=== PATIENT | female | born 1955 | race Caucasian/White ===

== ENCOUNTER → 2016-08-13 | Outpatient (CLI) | payer BC ==
[~2016-08-13] MED LIST: ASPCH81X PO; COEN1CAP7 PO; DVN/160 PO; METO25TA3 PO; MULT1CHW4 PO; OMEG12006 PO
[2016-08-13 14:00] LABS: ALT/SGPT 46 U/L (12-78); BLOOD UREA NITROGEN 17 mg/dl (7-18); BUN/CREATININE RATIO 22.8 (10-20); CALCIUM 8.6 mg/dl (8.5-10.1); CARBON DIOXIDE 25 mmol/L (21-32); CHLORIDE 108 mmol/L (98-107); CHOLESTEROL 200 mg/dl (0-200); CHOLESTEROL/HDL RATIO 2.5; CREATININE 0.76 mg/dl (0.60-1.20); GLUCOSE 93 mg/dl (70-99); HDL CHOLESTEROL 81 mg/dl; LDL CHOLESTEROL CALCULATED 103 mg/dl; POTASSIUM 4.2 mmol/L (3.5-5.1); SODIUM 142 mmol/L (136-145); TRIGLYCERIDES 78 mg/dl (0-150); VERY LOW DENSITY LIPOPROT CALC 16 mg/dl
[2016-08-13 14:11] LABS: ALB/GLOB RATIO 1.2 (0.9-2); ALKALINE PHOSPHATASE 75 U/L (45-117); AST/SGOT 21 U/L (15-37); THYROID STIMULATING HORMONE 0.885 uIu/ml (0.300-4.500)
--- NOTE | 2016-08-18 07:05 | CODING QUERY MEDICAL NECESSITY ---
SUPPORTING DIAGNOSIS NEEDED Dr. Gordon, A supporting diagnosis is required for the test/procedure performed on this patient in order for us to be reimbursed by the patient's insurance. Please provide a supporting diagnosis for the following test/procedure listed below next to the test name along with your signature. *If there is no additional diagnosis for this patient that would support the following test/procedure please document that below next to the test/procedure. Test(s)/Procedure(s) that require a supporting diagnosis: * ([id number]) VITAMIN D ASSAY DIAGNOSIS: DATE OF SERVICE: 08/13/16 Provider Signature: Date: Thank you Catracho Ballesteros [facility] Information Management Once completed, please kindly fax back to [phone] For questions please call [phone]
== END | disposition home or self-care (01) ==
LOC: C.LABPVFM 08:31
PROVIDERS: ATTEND Family Medicine
DX: I10 Essential (primary) hypertension (principal); Z13.220 Encounter for screening for lipoid disorders; Z13.21 Encounter for screening for nutritional disorder; Z13.29 Encounter for screening for other suspected endocrine disorder; E55.9 Vitamin D deficiency, unspecified

== ENCOUNTER → 2017-06-16 | Outpatient (CLI) | payer OTHER ==
--- NOTE | 2017-06-16 11:14 | DIAGNOSTIC IMAGING REPORT ---
L KNEE 4 OR MORE VIEWS CLINICAL HISTORY: Left knee pain COMPARISON: None. DISCUSSION: No acute fractures are visualized. There is marked narrowing medial joint compartment. There are medial joint compartment spurs. IMPRESSION: Moderately advanced osteoarthritic changes involving the medial joint compartment. No acute fractures. Electronically signed by: Marcelo Cano M.D. 06/16/2017 11:13 AM Dictated Date/Time: 06/16/2017 11:12 AM
== END | disposition home or self-care (01) ==
LOC: C.RADPV 10:10
PROVIDERS: ATTEND Family Medicine
DX: M25.569 Pain in unspecified knee (principal)

== ENCOUNTER → 2017-08-27 | Outpatient (CLI) | payer OTHER | END | disposition home or self-care (01) | LOC: C.PAPS 13:39 | PROVIDERS: ATTEND Family Medicine | DX: Z12.4 Encounter for screening for malignant neoplasm of cervix (principal) ==

== ENCOUNTER 2019-05-16 10:09 | Inpatient (IN) ==
--- NOTE | 2019-04-26 09:46 | PAT Medication Instructions ---
Medication Instructions Date of Service April 26, 2019 Home Medications coenzyme Q10 100 mg capsule 100 mg PO QAM losartan 50 mg tablet 50 mg PO PM omega-3 acid ethyl esters 1 gram capsule 1 cap PO BID metoprolol succinate 25 mg PO QPM Chewable Heartburn Med, Otc 1 dose PO UD PRN cholecalciferol (vitamin D3) [Vitamin D3] 1,000 unit PO DAILY multivitamin 1 cap PO DAILY turmeric 400 mg PO DAILY vitamin B complex 1 cap PO DAILY STOP taking 2 weeks before surgery (or as soon as possible if surgery is within 2 weeks) coenzyme Q10 100 mg capsule 100 mg PO QAM omega-3 acid ethyl esters 1 gram capsule 1 cap PO BID turmeric 400 mg PO DAILY DO NOT take the morning of surgery Chewable Heartburn Med, Otc 1 dose PO UD PRN cholecalciferol (vitamin D3) [Vitamin D3] 1,000 unit PO DAILY multivitamin 1 cap PO DAILY vitamin B complex 1 cap PO DAILY Take evening before surgery losartan 50 mg tablet 50 mg PO PM metoprolol succinate 25 mg PO QPM Chewable Heartburn Med, Otc 1 dose PO UD PRN (if needed) Other Notes If you have any questions please call us at [phone] or [phone] or [phone] or [phone]
--- NOTE | 2019-05-01 08:32 | Anesthesiology Consultation ---
Date of Service May 01, 2019 Assessment & Plan (1) Encounter for pre-operative examination: Chart Review Chart Review: Acceptable Risk for Surgery and Patient seen in Pre Admission Testing Teaching & Discussion Pre-Anesthesia Teaching/Discussion Notes: Instructed NPO after midnight before surgery,except medications with 15 cc of water. Medication instructions provided according to the PAT guidelines. History Surgery Operation Date: 05/16/19 07:00 Proposed Procedures p Left Total Knee Replacement - Logan Zepeda MD Height/Weight Height: 4 ft 11 in Weight: 78.7 kg Allergies Allergy/AdvReac Type Severity Reaction Status Date / Time Penicillins Allergy Unknown RASH Verified 04/20/19 11:00 petrolatum,white Allergy Unknown ITCHINESS Verified 04/20/19 11:00 [From Vaseline] Medications Home Medications Medication Instructions Recorded Confirmed Last Taken coenzyme Q10 100 mg capsule 100 mg PO QAM cap 02/13/19 04/20/19 03/27/19 losartan 50 mg tablet 50 mg PO PM #90 tab 02/13/19 04/20/19 03/27/19 omega-3 acid ethyl esters 1 gram 1 cap PO BID cap 02/13/19 04/20/19 03/27/19 capsule metoprolol succinate 25 mg PO QPM 03/10/19 04/20/19 03/27/19 Chewable Heartburn Med, Otc 1 dose PO UD PRN 04/20/19 04/20/19 Unknown cholecalciferol (vitamin D3) 1,000 unit PO DAILY 04/20/19 04/20/19 Unknown [Vitamin D3] multivitamin 1 cap PO DAILY 04/20/19 04/20/19 Unknown turmeric 400 mg PO DAILY 04/20/19 04/20/19 Unknown vitamin B complex 1 cap PO DAILY 04/20/19 04/20/19 Unknown Past Medical History Medical History Benign hypertension Bilateral primary osteoarthritis of knee Heartburn controlled History of skin cancer s/p excision Obesity Exercise / Class Metabolic Activity III < 4 Walking/Shop/Light housework Past Family History Family History Grandmother (Maternal) Colon cancer Father Lung cancer Past Surgical History Surgical History History of bilateral tubal ligation History of cataract surgery R History of colonoscopy History of tooth extraction Past Anesthesia History No Hx of Anesthesia Complications (except PONV x 1 episode) and No Family Hx of Anesthesia Complications History of PONV No Hx of Motion Sickness and History of PONV (x1 episode) Social History Smoking Status: Former smoker Do You Dip or Chew Tobacco: No Smoking End Date: 1975 Hx Alcohol Use: Yes Alcohol type: beer, wine and hard liquor alcohol intake frequency: a few times a week Hx Substance Use: No substance use type: does not use Review of Systems Controlled reflux. Hx palpitations controlled on beta maria de jesus. Patient denies chest pain, shortness of breath, cough, wheezing, palpitations. Physical Exam Vital Signs VITALS BP 125/85 P 76 TEMP 98.7 SP02 96%RA RESP 16 PHYSICAL Full neck and c-spine range of motion. Full TMJ range of motion. TMD 3.5 finger breaths Mallampati Score 2 Dentition: missing molar Lungs: clear throughout to auscultation Cardiac: regular rate and rhythm, no murmurs noted Spine: normal Carotid arteries: negative bruit Extremities: no edema Testing Laboratory Results 05/01/19 08:36 05/01/19 08:36 PT 9.8 Seconds (9.0-12.0) 05/01/19 08:36 INR 1.0 (0.9-1.1) 05/01/19 08:36 APTT 23.6 Seconds (21.0-31.0) 05/01/19 08:36 Blood Type B Positive 05/01/19 08:36 Antibody Screen NEGATIVE 05/01/19 08:36 Electrocardiogram Date: 05/01/19 NSR at 78bpm. Minimal voltage criteria for LVH, may be normal variant. Chest X-Ray Date: 05/01/19 Degenerative change and mild scoliosis are noted in the thoracic spine. No active disease in the chest.
--- NOTE | 2019-05-01 09:38 | XRay Report ---
TWO VIEW CHEST CLINICAL HISTORY: Preoperative examination. FINDINGS: PA and lateral chest radiographs are compared to study dated 04/21/2014. The cardiomediasti nal silhouette is unremarkable. The lungs and pleural spaces are clear. There is no pneumothorax. Th e skeletal structures are osteopenic. The bony thorax appears intact. Degenerative change and mild sc oliosis are noted in the thoracic spine. IMPRESSION: No active disease in the chest. Electronically signed by: Chema Lugo M.D. 05/01/2019 9:36 AM
[2019-05-01 10:59] LABS: Basophils # (auto) 0.01 K/uL (0-0.2); Basophils % (auto) 0.1 %; Eosinophils # (auto) 0.09 K/uL (0-0.5); Eosinophils % (auto) 1.2 %; Hematocrit (blood only) 45.6 % (37-47); Immature Granulocytes # (auto) 0.02 K/uL (0.00-0.02); Immature Granulocytes % (auto) 0.3 %; Lymphocytes # (auto) 1.69 K/uL (1.2-3.4); Lymphocytes % (auto) 23.1 %; Mean Corpuscular Hemoglobin 29.8 pg (25-34); Mean Corpuscular Hgb Conc 32.9 g/dL (32-36); Mean Corpuscular Volume 90.5 fL (80-100); Mean Platelet Volume 11.7 fL (7.4-10.4); Monocytes % (auto) 6.8 %; Neutrophils % (auto) 68.5 %; Platelet Count 248 K/uL (130-400); RDW Coefficient of Variation 13.2 % (11.5-14.5); Red Blood Count 5.04 M/uL (4.2-5.4); White Blood Count 7.31 K/uL (4.8-10.8)
[2019-05-01 11:08] LABS: BUN Creatinine Ratio 22.6 (10-20); Calcium 9.8 mg/dl (8.5-10.1); Creatinine Clr Calc Pharmacy 63.6 ml/min; Est GFR (Non-African American) 76.8; Potassium 4.3 mmol/L (3.5-5.1)
[2019-05-01 11:13] LABS: Partial Thromboplastin Ratio 0.9; Partial Thromboplastin Time 23.6 Seconds (21.0-31.0); Prothrombin Time 9.8 Seconds (9.0-12.0)
[~2019-05-16 10:09] MED LIST changes: +ACETAMINOPHEN 500 MG TAB PO SCH; -ASPCH81X PO; +BUPIVACAINE 0.25% 30 ML VIAL ONE; +BUPIVACAINE 0.5 % 5 MG/1 ML PF 10ML VIAL ONE; +BUPIVACAINE LIPOSOME/PF 266 MG, BUPIVACAINE/EPINEPHRINE 50 ML, SODIUM CHLORIDE 0.9% 30 ... INFIL SCH; +CEFAZOLIN 2000MG 2,000 MG/15 ML SYR IV SCH; -COEN1CAP7 PO; -DVN/160 PO; +FAMOTIDINE 20 MG TAB PO SCH; +GABAPENTIN 300 MG CAP PO SCH; +LR 500ML BOLUS, THEN 15ML/HR IV SCH; +LR 60ML/HR IV SCH; -METO25TA3 PO; +METOCLOPRAMIDE HCL 10 MG TABLET PO SCH; -MULT1CHW4 PO; -OMEG12006 PO; +SCOPOLAMINE 1.5 MG TDSY TD SCH; +TRANEXAMIC ACID 1,000 MG **IV Intra-op IV SCH
[2019-05-16] MEDS ORDERED: TRANEXAMIC ACID / 0.7% NACL 1000MG/100ML BAG IV ONE (10:40)
--- NOTE | 2019-05-16 11:01 | History & Physical Bridge Note ---
Date of Service May 16, 2019 History & Physical Bridge Note I have examined the patient, reviewed the History & Physical and in the interval since the performance of the History & Physical I have noted the following changes of clinical significance: no changes noted
--- NOTE | 2019-05-16 11:24 | History & Physical Report ---
Date of Service May 16, 2019 Assessment & Plan (1) Osteoarthritis: (2) Degenerative joint disease of knee: Left Total Knee Replacement History of Present Illness Chief Complaint: Left Knee Pain Primary Care Provider: Ana Gordon MD 63 year old female with several year history of Bilateral knee pain...left greater than right. Failed all conservative care and desires to proceed with left knee replacement. Allergies Allergy/AdvReac Type Severity Reaction Status Date / Time Penicillins Allergy Unknown RASH Verified 05/16/19 10:34 petrolatum,white Allergy Unknown ITCHINESS Verified 05/16/19 10:34 [From Vaseline] Home Medications Home Medications Medication Instructions Recorded Confirmed Type coenzyme Q10 100 mg capsule 100 mg PO QAM cap 02/13/19 05/16/19 History losartan 50 mg tablet 50 mg PO PM #90 tab 02/13/19 05/16/19 History omega-3 acid ethyl esters 1 gram 1 cap PO BID cap 02/13/19 05/16/19 History capsule metoprolol succinate 25 mg PO QPM 03/10/19 05/16/19 History Chewable Heartburn Med, Otc 1 dose PO UD PRN 04/20/19 05/16/19 History cholecalciferol (vitamin D3) 1,000 unit PO DAILY 04/20/19 05/16/19 History [Vitamin D3] multivitamin 1 cap PO DAILY 04/20/19 05/16/19 History turmeric 400 mg PO DAILY 04/20/19 05/16/19 History vitamin B complex 1 cap PO DAILY 04/20/19 05/16/19 History Past Med/Surg History Medical History (Updated 05/16/19 @ 11:24 by Logan Zepeda MD) Benign hypertension Bilateral primary osteoarthritis of knee Degenerative joint disease of knee Heartburn controlled History of skin cancer s/p excision Obesity Surgical History History of bilateral tubal ligation History of cataract surgery R History of colonoscopy History of tooth extraction Family History Grandmother (Maternal) Colon cancer Father Lung cancer Social History Preferred Language: Vietnamese Communication Ability: Effective 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 Beliefs That Will Affect Care: None Current Living Situation: Spouse Other Information That Helps Us Care for You: No Feels Safe at Home: Yes Smoking Status: Former smoker Do You Dip or Chew Tobacco: No ; Smoking End Date: Quit 1975 ; Second Hand Exposure: No ; Hx Alcohol Use: Yes Alcohol type: beer, wine and hard liquor Hx Substance Use: No Physical Exam Constitutional: WD/WN, vitals as above Eyes: PERRL, conjunctivae normal, anicteric sclerae ENMT: external ear and nose normal, oropharynx normal Neck: trachea midline, no thyromegaly Respiratory: normal respiratory effort, lungs clear to auscultation Cardiovascular: RRR, no murmur, no edema Chest (Breasts): normal inspection/palpation of breasts Gastrointestinal (Abdomen): normal bowel sounds, soft, nontender, no hepatosplenomegaly Musculoskeletal: Left Knee varus deformity. Tender medial joint line. ROM: 10-105 degrees. N/V intact. Skin: no rashes, warm and dry Neurologic: patellar DTR's 2+ bilat, sensation intact Results & Data Vital Signs (Past 12 Hours) Vital Signs Temp Pulse Resp BP Pulse Ox 05/16/19 10:37 36.7 C 75 20 140/88 97
[2019-05-16] MEDS ORDERED: fentaNYL citrate 100 MCG/2 ML VIAL IV PRN (11:26)
[2019-05-16] MEDS ORDERED: ONDANSETRON INJ 2 MG/ML 2 ML VIAL IV PRN ×2 (11:26→15:54)
[2019-05-16] MEDS ORDERED: ePHEDrine sulfate 50 MG/ML AMP IV PRN (11:26)
[2019-05-16] MEDS ORDERED: ATROPINE SULFATE 0.1 MG/ML 10ML SYR IV PRN (11:26)
[2019-05-16] MEDS ORDERED: PROPOFOL IV EMULSION 10 MG/ML 20 ML VIAL IV ONE (11:28)
[2019-05-16] MEDS ORDERED: LIDOCAINE HCL 2% 2 ML VIAL/AMP(20MG/ML) INFIL ONE (11:28)
[2019-05-16] MEDS ORDERED: fentaNYL citrate 100 MCG/2 ML VIAL ONE (11:28)
[2019-05-16] MEDS ORDERED: MIDAZOLAM HCL 1 MG/ML 2ML VIAL ONE (11:28)
[2019-05-16] MEDS ORDERED: BUPIVACAINE LIPOSOME 1.3% 266 MG/20 ML VIAL ONE (12:42)
[2019-05-16] MEDS ORDERED: BUPIVACAINE 0.25% 30 ML VIAL ONE (12:42)
[2019-05-16] MEDS ORDERED: SODIUM CHLORIDE 0.9% PF 50 ML VIAL ONE (12:42)
[2019-05-16] MEDS ORDERED: BACITRACIN INJ 50,000 UNIT VIAL ONE (12:42)
[2019-05-16] MEDS ORDERED: EPINEPHrine INJ 1 MG/ML AMP ONE (12:43)
[2019-05-16] MEDS ORDERED: PHENYLEPHRINE 100MCG/ML 5ML SYR ONE (13:29)
[2019-05-16] MEDS ORDERED: ONDANSETRON INJ 2 MG/ML 2 ML VIAL ONE (14:10)
--- NOTE | 2019-05-16 14:50 | Post Operative Brief Note ---
PG Immediate Post Op with CF Date of Surgery May 16, 2019 Pre & Post Diagnosis Operation Date: 05/16/19 12:30 Pre-Op Diagnosis: Left Knee Advanced Degenerative Joint Disease Post-Op Diagnosis: Left Knee Advanced Degenerative Joint Disease I identified the patient and participated in the time-out.: Yes Procedure Operation Date: 05/16/19 12:30 Actual Procedures p Left Total Knee Replacement(Left) - Logan Zepeda MD Surgeon Logan Zepeda MD Band Aid Machine Operator Toyin, PAC Estimated Blood Loss 50 Findings Consistent with Post-Op Diagnosis Fluids 1100 cc Specimens Specimen Description: A. Left Knee Bone and Tissue Drains Bedoya Catheter (A 16 Tamazight bedoya catheter was inserted by Elisa Murillo RN, without difficulty, clear yellow urine obtained, output to be monitored by Anesthesia.) Anesthesia Type Spinal MAC Complications none Disposition Accompanied Patient To Recovery: No Disposition: Recovery Room
--- NOTE | 2019-05-16 15:42 | XRay Report ---
TWO VIEWS LEFT KNEE CLINICAL HISTORY: Postoperative examination. FINDINGS: AP and crosstable lateral portable views of the left knee are obtained. A left knee arthrop lasty is in near anatomic alignment. There has been undersurface remodeling of the patella. No acute fracture is seen. There are expected postoperative changes around the knee including skin clips, soft tissue edema, and subcutaneous gas. IMPRESSION: Expected postoperative changes status post left knee arthroplasty. No acute fracture is s een. Electronically signed by: Chema Lugo M.D. 05/16/2019 3:40 PM
--- NOTE | 2019-05-16 15:43 | Anesthesiology Progress Note ---
Date of Service May 16, 2019 Anesthesia Post Procedure Vital Signs Vital Signs: Temp Pulse Pulse Resp BP Pulse Ox 05/16/19 15:40 36.6 C 58 L 16 115/70 100 05/16/19 15:30 36.6 C 58 L 16 100/64 100 05/16/19 15:20 68 16 113/61 100 05/16/19 15:10 58 L 16 109/55 L 100 05/16/19 15:00 62 16 104/53 L 100 05/16/19 14:54 36.4 C L 68 16 117/52 L 100 05/16/19 10:37 36.7 C 75 20 140/88 97 Transfer of Care Handoff Completed per policy Notes Mental Status: alert / awake / arousable and participated in evaluation Nausea / Vomiting: adequately controlled Pain: adequately controlled Airway Patency, RR, SpO2: stable & adequate BP & HR: stable & adequate Hydration State: stable & adequate Neuraxial Anesthesia: was administered and sensory block is resolving Anesthetic Complications: no major complications apparent and Pt Satisfied with anesthetic care
[2019-05-16] MEDS ORDERED: NALOXONE HCL 0.4 MG/1 ML VIAL/CARP IV PRN (15:54)
[2019-05-16] MEDS ORDERED: ALUMINUM/MAGNESIUM SUSP 30 ML UDC PO PRN (15:54)
[2019-05-16] MEDS ORDERED: OXYCODONE HCL IR 5 MG TAB (IMMEDIATE RELEASE) PO PRN (15:54)
[2019-05-16] MEDS ORDERED: bisacodyL 10 MG SUPP PR PRN (15:54)
[2019-05-16] MEDS ORDERED: HYDROmorphone INJ 0.5 MG/0.5 ML SYR IV PRN (15:54)
[2019-05-16] MEDS ORDERED: CALCIUM CARBONATE 500 MG CHEWABLE TAB PO PRN (15:54)
[2019-05-16] MEDS ORDERED: SODIUM CHLORIDE 0.9% 1000ML 1,000 ML IV SCH (15:54)
[2019-05-16] MEDS ORDERED: MAGNESIUM HYDROXIDE SUSP 30 ML UDC PO PRN (15:54)
[2019-05-16] MEDS ORDERED: METOCLOPRAMIDE HCL INJ 5 MG/ML 2 ML VIAL IV PRN (15:54)
[2019-05-16] MEDS: KETOROLAC 30 MG/ML VIAL IV SCH ×2 (17:02→21:59)
[2019-05-16] MEDS: FERROUS GLUCONATE 324 MG TAB PO SCH (17:02)
[2019-05-16] MEDS: ASCORBIC ACID 500 MG TAB PO SCH (17:02)
[2019-05-16] MEDS: ACETAMINOPHEN 500 MG TAB PO SCH ×2 (17:02→23:46)
[2019-05-16] MEDS: CHECK SCOPOLAMINE PATCH PLACEMENT SCH ×2 (17:03→23:46)
[2019-05-16] MEDS ORDERED: TRANEXAMIC ACID / 0.7% NACL 1,000 MG/100 ML BAG IV SCH (20:30)
[2019-05-16] MEDS: DOCUSATE SODIUM 100 MG CAP PO SCH (20:46)
[2019-05-16] MEDS: LOSARTAN POTASSIUM 50 MG TAB PO SCH (20:46)
[2019-05-16] MEDS: CEFAZOLIN 1000MG 1,000 MG/7.5 ML SYR IV SCH (20:46)
[2019-05-16] MEDS: ASPIRIN 81 MG ECTAB PO SCH (20:46)
[2019-05-16] MEDS: TAPENTADOL HCL ER 50 MG TABCR PO SCH (20:46)
[2019-05-16] MEDS: METOPROLOL SUCC 25MG EXT REL TAB PO SCH (20:46)
[2019-05-16] MEDS: SENNA 8.6 MG TAB PO SCH (20:47)
[2019-05-16] MEDS: OMEGA-3 (PURIFIED FISH OIL) 1 GM CAP PO SCH (20:47)
--- NOTE | 2019-05-16 22:18 | Operative Report ---
Post Operative Report Pre & Post Diagnosis Operation Date: 05/16/19 12:30 Pre-Op Diagnosis: Left Knee Advanced Degenerative Joint Disease Post-Op Diagnosis: Left Knee Advanced Degenerative Joint Disease I identified the patient and participated in the time-out.: Yes Procedure Operation Date: 05/16/19 12:30 Actual Procedures p Left Total Knee Replacement(Left) - Logan Zepeda MD Surgeon Logan Zepeda MD Spray Technician Toyin, PAC Estimated Blood Loss 50 Findings Consistent with Post-Op Diagnosis Operative findings revealed advanced left knee DJD. She had extensive grade 4 [id number] disease of the medial femoral condyle medial tibial plateau with extensive eburnation and more diffuse less severe patellofemoral disease. She had a varus deformity to her knee. A large knee joint effusion. She had osteophytes off the medial femoral condyle medial tibial plateau. Fluids 1100 cc Specimens Left knee sent for pathology. Drains None. Anesthesia Type Spinal MAC Complications none Disposition Accompanied Patient To Recovery: No Disposition: Recovery Room Indications Patient is a 63-year-old female with a long history of bilateral knee pain discomfort left side greater than the right. She been through extensive conservative treatment which just became less successful over time. X-rays show advanced DJD. She elected proceed with left total knee arthroplasty. Description of Procedure Operative implants consisted of: 1. Biomet Vanguard size 60 left posterior stabilized femoral component. 2. Biomet size 63 tibial tray. 3. 10 mm posterior bite polyethylene insert. 4. 28 x 8 all poly-patella. Patient was taken to the operating identified and placed in the operating table supine position protectors were properly padded. IV antibiotics were provided by the anesthesia team. A spinal anesthetic and abductor canal block had provided holding area. Luong catheter was placed in sterile fashion. A left eye turn was then placed in the left lower extremities and prepped and draped in usual sterile fashion. The left leg was elevated and exsanguinated with use of an Esmarch interspace at 300 mmHg. An anterior posterior left knee was then performed to longitudinal incision centered over the patella. Sharp dissection was gone through subcutaneous tissue down to level the extensor mechanism. A medial parapatellar arthrotomy incision was made. Some subperiosteal dissection was carried out medially. The fat pad was resected from each patella tendon. Lateral patellofemoral ligament was released. The patella was subluxated laterally and the knee was flexed. The osteophytes were taken off the distal femur. The ACL PCL were then released from the distal femur the tibia subluxated anteriorly. The external tibial alignment jig was then placed in the interface the tibia adjusted 14 mm medially. Proximal tibial cut was made to remove about 1 to 2 mm of bone from most efficient aspect medial tibial plateau. Some osteophytes were taken off medial and posterior medially. The tibia was then sized to a size 63. Attention drawn the femur. The distal femur was entered with a sharp drop with intramedullary canal was suction. A left 5 degree valgus cutting guide was placed. Distal femoral cu tting block was pinned in place but distal femoral cut was made to take an additional 3 mm of bone off distal femur. The femur was then sized to a size 60. The AP cutting block was pinned parallel to the epicondylar axis which was 4 degrees of external rotation. The anterior cut, anterior chamfer, posterior cut, posterior chamfer cuts were made. Box cutting guide was placed in just slight lateral and the box cut was made. The knee was flexed. The remnants of the medial lateral menisci were excised. The osteophytes were taken off the posterior aspect of the femur. Trial femoral component was placed. The tibial tray was pinned in maximum external rotation drill and stem punch we used to create defect in the proximal tibia for the tibial tray. The knee was then trialed and the 10 mm insert fit most appropriately. Attention drawn the patella. The patella was cleaned of all soft tissues. Patella thickness measured about 18 mm in thickness was cut down to 12. Size a size 28 patella. Locals were drilled for the 28 patella. The lateral osteophytes removed. Patella button was placed. Knee was taken through range of motion patella tracked nicely with no thumbs test. Attention turned to placing the permanent components. All trial components were removed. A bone plug was placed in the disc femur limit blood loss put a double batch Palacos G cement was mixed. [employer] size 60 left posterior bifemoral component, size 63 tibial tray, 10 mm posterior bite polyethylene insert, 28 x 8 all poly-patella then cement in place. Knees brought in full extension total cement hardened. Final cement check was then performed. The pericapsular tissues were injected with total 100 cc of combination of 20 cc of Exparel, 30 cc normal saline, 50 cc of quarter percent Marcaine with epinephrine. Patient did receive 1 g of tranexamic acid. The tourniquet was then let down for final tourniquet time of 50 minutes. Hemostasis was assured use electrocautery. The wounds once again irrigated. Extensor mechanism closed with combination 1 PDS suture #1 Vicryl suture in [id number] fashion. Extensor mechanism checked found to be intact with subcutaneous tissue then closed with 2 Dexon suture buried knot fashion skin was closed skin mary. Leg was then cleaned dried a sterile dressing composed of Xeroform, 4 x 4's, sterile cast padding, Matt bandage were applied. Patient then transferred to the recovery room in stable condition. Patient tolerated the procedure well and there were no complications. I attest to the content of the Intraoperative Record and any orders documented therein. Any exceptions are noted below.
[2019-05-17] MEDS: KETOROLAC 30 MG/ML VIAL IV SCH ×4 (05:18→22:07)
[2019-05-17] MEDS: CEFAZOLIN 1000MG 1,000 MG/7.5 ML SYR IV SCH (05:19)
[2019-05-17 05:56] LABS: Hematocrit (blood only) 40.2 % (37-47); Hemoglobin 12.8 g/dL (12.0-16.0); Mean Corpuscular Hemoglobin 29.4 pg (25-34); Mean Corpuscular Hgb Conc 31.8 g/dL (32-36); Mean Corpuscular Volume 92.4 fL (80-100); Mean Platelet Volume 10.8 fL (7.4-10.4); Platelet Count 216 K/uL (130-400); RDW Coefficient of Variation 13.2 % (11.5-14.5); RDW Standard Deviation 44.9 fL (36.4-46.3); Red Blood Count 4.35 M/uL (4.2-5.4)
[2019-05-17 06:25] LABS: Calcium 8.6 mg/dl (8.5-10.1); Est GFR (African American) 81.6; Est GFR (Non-African American) 70.4; Potassium 4.1 mmol/L (3.5-5.1)
[2019-05-17] MEDS: MULTIVITAMIN TAB PO SCH (08:36)
[2019-05-17] MEDS: TAPENTADOL HCL ER 50 MG TABCR PO SCH ×2 (08:36→20:57)
[2019-05-17] MEDS: ASCORBIC ACID 500 MG TAB PO SCH ×2 (08:37→17:53)
[2019-05-17] MEDS: OMEGA-3 (PURIFIED FISH OIL) 1 GM CAP PO SCH ×2 (08:37→20:57)
[2019-05-17] MEDS: VITAMIN B COMPLEX TAB PO SCH (08:37)
[2019-05-17] MEDS: CHOLECALCIFEROL 1,000 UNITS TAB PO SCH (08:37)
[2019-05-17] MEDS: ACETAMINOPHEN 500 MG TAB PO SCH ×3 (08:37→23:35)
[2019-05-17] MEDS: DOCUSATE SODIUM 100 MG CAP PO SCH ×2 (08:38→20:56)
[2019-05-17] MEDS: FERROUS GLUCONATE 324 MG TAB PO SCH ×2 (08:38→17:53)
[2019-05-17] MEDS: ASPIRIN 81 MG ECTAB PO SCH ×2 (08:38→20:57)
[2019-05-17] MEDS ORDERED: NON-FORMULARY MEDICATION (Coenzyme Q10 100 MG) PO SCH (09:00)
[2019-05-17] MEDS ORDERED: MULTIVITAMIN TAB PO SCH (09:00)
[2019-05-17] MEDS ORDERED: NON-FORMULARY MEDICATION (Turmeric 400 MG) PO SCH (09:00)
--- NOTE | 2019-05-17 13:41 | Progress Note ---
DATE: 05/17/2019 SUBJECTIVE: A 63-year-old female postop day 1 from a left knee replacement. She is doing pretty well. Pain is controlled. No chest pain or shortness of breath. Not feeling dizzy or lightheaded. OBJECTIVE: VITAL SIGNS: Temperature 36.7. Vital signs stable. GENERAL: Shows a pleasant, middle-aged female. She is lying in bed, looks quite comfortable. LUNGS: Clear to auscultation. HEART: Regular rate and rhythm. ABDOMEN: Soft, nontender, nondistended. EXTREMITIES: Grossly neurovascularly intact except as follows: Examination of the left lower extremity reveals the leg to be well aligned. Dressing is clean, dry and intact. She can dorsiflex and plantarflex her foot appropriately. She is neurologically intact. LABORATORY DATA: Hemoglobin is 12.8. Hematocrit 40.2. Electrolytes are stable. ASSESSMENT: A 63-year-old female postop day 1 from left knee replacement, doing well. Pain is controlled. She is neurologically intact. PLAN: 1. DVT prophylaxis including thigh-high TEDs, SCDs, and aspirin twice a day. 2. PT/OT. Weight bear as tolerated. Left total knee protocol. 3. Pain control, doing pretty well with current pain regimen. 4. Disposition: She is planning to be discharged home with some home health once adequately recovered and medically stable.
[2019-05-17] MEDS: LOSARTAN POTASSIUM 50 MG TAB PO SCH (20:56)
[2019-05-17] MEDS: METOPROLOL SUCC 25MG EXT REL TAB PO SCH (20:57)
[2019-05-17] MEDS: SENNA 8.6 MG TAB PO SCH (20:57)
[2019-05-18] MEDS: KETOROLAC 30 MG/ML VIAL IV SCH ×2 (05:16→10:35)
[2019-05-18] MEDS: ACETAMINOPHEN 500 MG TAB PO SCH (07:47)
[2019-05-18] MEDS: ASCORBIC ACID 500 MG TAB PO SCH (07:48)
[2019-05-18] MEDS: ASPIRIN 81 MG ECTAB PO SCH (07:48)
[2019-05-18] MEDS: DOCUSATE SODIUM 100 MG CAP PO SCH (07:48)
[2019-05-18] MEDS: MULTIVITAMIN TAB PO SCH (07:49)
[2019-05-18] MEDS: OMEGA-3 (PURIFIED FISH OIL) 1 GM CAP PO SCH (07:49)
[2019-05-18] MEDS: VITAMIN B COMPLEX TAB PO SCH (07:49)
[2019-05-18] MEDS: CHOLECALCIFEROL 1,000 UNITS TAB PO SCH (07:50)
[2019-05-18] MEDS: TAPENTADOL HCL ER 50 MG TABCR PO SCH (07:53)
--- NOTE | 2019-05-18 07:53 | Progress Note ---
DATE: 05/18/2019 SUBJECTIVE: A 63-year-old female postop day 2 from a left knee replacement. She is doing well. Pain is controlled. Therapy has gone well. No chest pain or shortness of breath. Not feeling dizzy or lightheaded. OBJECTIVE: VITAL SIGNS: Temperature 36.5. Vital signs stable. GENERAL: Shows a pleasant, middle-aged female. She was walking around her room with a walker, doing quite well this morning. EXTREMITIES: Examination of the left leg reveals the dressing to be in place. Just a little bit of bloody drainage at the inferior aspect. She can dorsiflex and plantarflex her foot appropriately. She is neurologically intact. ASSESSMENT: A 63-year-old female postop day 2 from a left knee replacement, doing well. Pain is controlled. She is neurologically intact. PLAN: 1. DVT prophylaxis including thigh-high TEDs, SCDs and aspirin twice a day. 2. PT/OT. Weight bear as tolerated. Left total knee protocol. 3. Pain control, doing well with current pain regimen. 4. Disposition: Plan to discharge to home with some home health later today.
[2019-05-18] MEDS: FERROUS GLUCONATE 324 MG TAB PO SCH (08:11)
== END 2019-05-18 15:46 | disposition home health service (06) | DRG 470 ==
LOC: ASU 10:09 → 3E 14:55